=== PATIENT | male | born 1975 | race Two or more races ===

== ENCOUNTER 2025-02-20 13:44 | Emergency (ER) | payer SELFPAY ==
[~2025-02-20] VITALS: Ht 165.1 cm; Wt 62.0 kg
--- NOTE | 2025-02-20 14:04 | ED.PDOC ---
History of Present Illness HPI Comments 49-year-old male with PMHx DM2 presents with a chief complaint of hyperglycemia. Patient mentions that his blood sugar at the clinic was in the 400's. Here in the ER, patients point of contact glucose was 320. Patient states that he takes Metformin for his diabetes, and reports that he does take his medication as prescribed. Patient denies any other symptoms at this time. No other symptoms or modifying factors present at this time. Chief Complaint: Hyperglycemia Time Seen by MD: 13:52 Reviewed Notes: Medications, Allergies Allergies: Coded Allergies: NO KNOWN ALLERGIES (Unverified , 02/20/25) Information Source: Patient Mode of Arrival: Ambulatory Severity: Moderate Timing: Days Duration: Since onset Prehospital treatment: None Past Medical History PAST MEDICAL HISTORY: DM Surgical History: Denies all surgeries Family History Family History: Reviewed,noncontributory to illness Social History Smoker: Non-Smoker Alcohol: Denies ETOH Use Drugs: Denies Drug Use Lives In: Home Constitutional: denies: chills, diaphoresis, fatigue, fever, malaise, sweats, weakness, others EENTM: denies: blurred vision, double vision, ear bleeding, ear discharge, ear drainage, ear pain, ear ringing, eye pain, eye redness, hearing loss, mouth pain, mouth swelling, nasal discharge, nose bleeding, nose congestion, nose pain, photophobia, tearing, throat pain, throat swelling, voice changes, others Respiratory: denies: cough, hemoptysis, orthopnea, SOB at rest, shortness of breath, SOB with excertion, stridor, wheezing, others Cardiovascular: denies: chest pain, dizzy spells, diaphoresis, Dyspnea on exertion, edema, irregular heart beat, left arm pain, lightheadedness, palpitations, PND, syncope, others Gastrointestinal: denies: abdomen distended, abdominal pain, blood streaked bowels, constipated, diarrhea, dysphagia, difficulty swallowing, hematemesis, melena, nausea, poor appetite, poor fluid intake, rectal bleeding, rectal pain, vomiting, others Genitourinary: denies: burning, dysuria, flank pain, frequency, hematuria, incontinence, penile discharge, penile sore, pain, testicle pain, testicle swelling, urgency, others Neurological: denies: dizziness, fainting, headache, left sided numbness, left sided weakness, numbness, paresthesia, pre-existing deficit, right sided numbness, right sided weakness, seizure, speech problems, tingling, tremors, weakness, others Musculoskeletal: denies: back pain, gout, joint pain, joint swelling, muscle pain, muscle stiffness, neck pain, others Integumetry: denies: bruises, change in color, change in hair/nails, dryness, laceration, lesions, lumps, rash, wounds, others Allergic/Immunocompromised: denies: Difficulty Healing, Frequent Infections, Hives, Itching, others Hematologic/Lymphatic: denies: anemia, blood clots, easy bleeding, easy bruising, swollen glands, others Endocrine: denies: excessive hunger, excessive sweating, excessive thirst, excessive urination, flushing, intolerance to cold, intolerance to heat, unexplained weight gain, unexplained weight loss, others Psychiatric: denies: anxiety, bipolar disorder, depression, hopeless, panic disorder, schizophrenia, sleepless, suicidal, others All Other Systems: Reviewed and Negative ( PER HPI) Physical Exam General Appearance: No Apparent Distress, Normal HEENT: Normal ENT Inspection, Pharynx Normal, TMs Normal Neck: Full Range of Motion, Non-Tender, Normal, Normal Inspection Respiratory: Chest Non-Tender, Lungs Clear, No Accessory Muscle Use, No Respiratory Distress, Normal Breath Sounds Cardiovascular: No Edema, No JVD, No Murmur, No Gallop, Normal Peripheral Pulses, Regular Rate/Rhythm Breast Exam: Deferred Gastrointestinal: No Organomegaly, Non Tender, No Pulsatile Mass, Normal Bowel Sounds, Soft Genitalia: Deferred Pelvic: Deferred Rectal: Deferred Extremities: No calf tenderness, Normal capillary refill, Normal inspection, Normal range of motion, Non-tender, No pedal edema Musculoskeletal : Apperance: Normal Neurologic: Alert, vp product management II-XII nml as Tested, No Motor Deficits, Normal Affect, Normal Mood, No Sensory Deficits Cerebellar Function: Normal Reflexes: Normal Skin: Dry, Normal Color, Warm Lymphatic: No Adenopathy Was a procedure done? Was a procedure done?: No Differential Dx Considerations may include: Diabetic Ketoacidosis vs Medication Non-Compliance vs Infection X-Ray, Labs, Meds, VS Vital Signs Date Time Temp Pulse Resp B/P (MAP) Pulse Ox O2 Delivery O2 Flow Rate FiO2 02/20/25 13:56 98.7 82 16 96/72 (80) 100 98.7 02/20/25 13:45 97.9 92 16 98/68 98 97.9 Lab Test 02/20/25 14:08 Range/Units White Blood Count 5.3 4.4-10.8 10^3/uL Red Blood Count 5.03 4.5-5.90 10^6/uL Hemoglobin 15.7 13.5-17.5 g/dL Hematocrit 44.4 41.0-53.0 % Mean Corpuscular Volume 88.3 80.0-100.0 fL Mean Corpuscular Hemoglobin 31.3 28.0-32.0 pg Mean Corpuscular Hemoglobin Concent 35.4 32.0-36.0 g/dL Red Cell Distribution Width 12.7 11.8-14.3 % Platelet Count 231 140-450 10^3/uL Mean Platelet Volume 7.3 6.9-10.8 fL Neutrophils (%) (Auto) 58.7 37.0-80.0 % Lymphocytes (%) (Auto) 31.7 10.0-50.0 % Monocytes (%) (Auto) 7.4 0.0-12.0 % Eosinophils (%) (Auto) 1.6 0.0-7.0 % Basophils (%) (Auto) 0.6 0.0-2.0 % Neutrophils # (Auto) 3.1 1.6-8.6 10 ^3/uL Lymphocytes # (Auto) 1.7 0.4-5.4 10 ^3/uL Monocytes # (Auto) 0.4 0-1.3 10 ^3/uL Eosinophils # (Auto) 0.1 0-0.8 10 ^3/uL Basophils # (Auto) 0 0-0.2 10 ^3/uL Nucleated Red Blood Cells 0.1 % Sodium Level 135 L 136-145 mmol/L Potassium Level 4.7 3.5-5.1 mmol/L Chloride Level 96 L 98-107 mmol/L Carbon Dioxide Level 31 20-31 mmol/L Anion Gap 8 5-15 Blood Urea Nitrogen 15 9-23 mg/dL Creatinine 1.10 0.700-1.30 mg/dL Glomerular Filtration Rate Calc 82 >90 mL/min BUN/Creatinine Ratio 13.6 10.0-20.0 Serum Glucose 343 H 74-106 mg/dL Calcium Level 10.7 H 8.7-10.4 mg/dL Time of 1ST Reevaluation: 14:22 Reevaluation 1ST: Unchanged Patient Education/Counseling: Diagnosis, Treatment, Need For Follow Up Family Education/Counseling: No Family Present SEPSIS Sepsis Screen Vital Signs Date Time Temp Pulse Resp B/P (MAP) Pulse Ox O2 Delivery O2 Flow Rate FiO2 02/20/25 13:56 98.7 82 16 96/72 (80) 100 98.7 02/20/25 13:45 97.9 92 16 98/68 98 97.9 Laboratory Tests Test 02/20/25 14:08 White Blood Count 5.3 10^3/uL (4.4-10.8) Departure 1 Departure Time of Disposition: 15:07 (patient presented for concerns of hyperglycemia in the setting of not checking glucose regularly at home. Has been compliant with metformin 1000mg BID, however, remains hyperglycemic. Labs today not concerning for DKA. No evidence of acute end organ damage on labs. Pt informed that he needs to start checking glucose regularly at home. Advised to keep a log of daily glucose and share this with PMD to discuss additional medication managements. Pt also advised on dietary changes. Pt is stable for discharge for further outpatient management.) Impression: Primary Impression: Hyperglycemia due to type 2 diabetes mellitus Qualified Codes: E11.65 - Type 2 diabetes mellitus with hyperglycemia Disposition: 01 HOME / SELF CARE / HOMELESS Condition: Stable Additional Instructions: Comience a controlar martinez nivel de glucosa a diario en casa y lleve un registro. Comparta rosy registro con martinez mdico de cabpreetra sagar martinez vinay de seguimiento. Si martinez nivel de azcar en travis se mantiene alto a diario, es posible que necesite otros medicamentos para la diabetes adems de la metformina. Evite tambin comer alimentos con alto contenido de azcar. Comience a hacer ejercicio a diario para controlar martinez diabetes. Discharged With: Self Critical Care Note Critical Care Time?: No Stability Stability form required: No Heart Score Heart Score: Heart Score Response (Comments) Value History N/A 0 EKG N/A 0 Age N/A 0 Risk Factors N/A 0 Troponin N/A 0 Total 0 I personally scribed for NICKI SAMUEL MD ([email or web address]) on 02/20/25 at 14:04. Electronically submitted by Narinder Lopez ([email or web address]). NICKI SAMUEL MD Feb 20, 2025 14:04 LIZ LYLES MD Feb 20, 2025 15:15
[2025-02-20 14:31] LABS: Potassium 4.7 mmol/L (3.5-5.1)
[2025-02-20 14:32] LABS: Anion Gap 8 (5-15); Hematocrit 44.4 % (41.0-53.0); Hemoglobin 15.7 g/dL (13.5-17.5); Mean Corpuscular Hemoglobin 31.3 pg (28.0-32.0); Mean Corpuscular Volume 88.3 fL (80.0-100.0); Nucleated Red Blood Cells % 0.1 %
[2025-02-20 14:33] LABS: Calcium 10.7 mg/dL (8.7-10.4); Carbon Dioxide 31 mmol/L (20-31); Chloride 96 mmol/L (98-107); Sodium 135 mmol/L (136-145)
[2025-02-20 14:37] LABS: BUN/Creatinine Ratio 13.6 (10.0-20.0); Blood Urea Nitrogen 15 mg/dL (9-23); Glucose 343 mg/dL (74-106)
[2025-02-20 16:01] LABS: Urine Protein, UAD Negative (Negative)
[2025-02-20 16:26] VITALS: BP 134/59; PULSE 89; RESP 20; TEMP 98.3; O2SAT 99
== END 2025-02-20 16:33 | disposition home or self-care (01) ==
LOC: ER 13:44
DX: E11.65 Type 2 diabetes mellitus with hyperglycemia (principal); Z79.899 Other long term (current) drug therapy
CPT/HCPCS: 36415; 80048; 81001; 82947; 82962; 85025